=== PATIENT | female | born 1950 | race Caucasian/White ===

== ENCOUNTER 2017-10-28 12:39 | Outpatient (CLI) | payer OTHER | END 2017-10-28 12:40 | disposition home or self-care (01) | LOC: DTY/OP 12:39 | PROVIDERS: ATTEND Surgery | DX: E66.01 Morbid (severe) obesity due to excess calories (principal) | CPT/HCPCS: 97802 ==

== ENCOUNTER 2017-11-11 16:00 | Inpatient (IN) | payer OTHER ==
[2017-11-11 16:55] VITALS: BMI 27.4
[2017-11-16] MEDS ORDERED: Heparin 5,000 UNITS/ML VIAL ONE (06:20)
[2017-11-16] MEDS ORDERED: CEFAZOLIN/Water 2 GM/20 ML SYRINGE ONE (06:20)
[2017-11-16] MEDS ORDERED: Bupivacaine/Epinephrine 0.25% 30 ML VIAL ONE (06:26)
[2017-11-16] MEDS ORDERED: Midazolam HCl 2 mg/2 ml Vial ONE (06:38)
[2017-11-16] MEDS ORDERED: Fentanyl 250 MCG/5 ML VIAL ONE (06:38)
[2017-11-16] MEDS ORDERED: Dextrose 5% in Water 1,000 ML IV PRN (08:59)
[2017-11-16] MEDS ORDERED: Dextrose 50% Abboject 50 ML SYRINGE SLOW IVP PRN (08:59)
[2017-11-16] MEDS ORDERED: hydrALAZINE 20 MG/ML VIAL SLOW IVP PRN (08:59)
[2017-11-16] MEDS ORDERED: Promethazine HCl 25 MG/ML VIAL IM PRN ×3 (08:59→09:13)
[2017-11-16] MEDS ORDERED: Ondansetron HCl/PF 4 MG/2 ML Vial IVP PRN ×3 (08:59→09:13)
[2017-11-16] MEDS ORDERED: diphenhydrAMINE 50 MG/ML VIAL IVP PRN ×2 (08:59→09:13)
[2017-11-16] MEDS: Acetaminophen 1,000 MG in Premix Bag 1 BAG IVPB SCH ×3 (09:00→20:47)
[2017-11-16] MEDS ORDERED: Promethazine HCl 25 MG/ML VIAL SLOW IVP PRN (09:08)
[2017-11-16] MEDS ORDERED: HYDROmorphone 2 MG/ML VIAL SLOW IVP PRN (09:08)
[2017-11-16] MEDS ORDERED: Ketorolac Tromethamine 30 MG/ML VIAL IVP PRN (09:13)
[2017-11-16] MEDS ORDERED: fentaNYL Citrate/PF 2,000 MCG in Sodium Chloride 0.9% 60 ML IV PRN (09:13)
[2017-11-16] MEDS ORDERED: Zolpidem Tartrate 5 MG TAB PO PRN (09:13)
[2017-11-16] MEDS ORDERED: Naloxone HCl 0.4 mg/ml Vial IV PRN (09:13)
[2017-11-16] MEDS ORDERED: diphenhydrAMINE 50 MG/ML VIAL IM PRN (09:13)
[2017-11-16] MEDS ORDERED: diphenhydrAMINE 25 MG CAP PO PRN (09:13)
[2017-11-16] MEDS ORDERED: Communication Order-Pharmacy FS SCH (09:15)
[2017-11-16] MEDS ORDERED: Fentanyl 100 MCG/2 ML VIAL ONE (09:21)
[2017-11-16] MEDS ORDERED: Promethazine HCl 25 MG/ML VIAL ONE (09:23)
[2017-11-16] MEDS ORDERED: Ketorolac Tromethamine 30 MG/ML VIAL IVP SCH (12:00)
--- NOTE | 2017-11-16 13:07 | OP ---
DATE OF PROCEDURE: 11/16/2017 PREOPERATIVE DIAGNOSES: Lap band intolerance and obesity. SURGEON: Jose Landin M.D. PROCEDURE: Laparoscopic removal of band port and sleeve gastrectomy. INDICATIONS: A 67-year-old female who is having severe reflux due to pouch dilatation despite an emp ty band, is gaining weight. Desires removal of band, conversion to sleeve. FINDINGS: She had minimal adhesions. A 38-[place] bougie used. PROCEDURE IN DETAIL: After informed consent was obtained, the patient was taken to the operating stuart m and given general endotracheal anesthesia. She was placed in the supine position. The abdomen was prepped and draped in usual fashion. Local anesthesia infiltrated subcutaneously and deep. A 12 mm incision was performed approximately 8 inches below the xiphoid slightly to the left. Veress needle inserted. Drop test performed. Pneumoperitoneum was created to a volume of 2 liters of carbon diox cale. Utilizing a bladeless 12 mm trocar and 0 degree laparoscope, direct visual entry in the abdomin al cavity was performed. Pneumoperitoneum was created to a pressure of 15 [address] patient [address] d in steep reverse Trendelenburg position. Nathansen liver retractor inserted. Left lobe of liver r etracted superiorly. Pylorus identified, a 12 mm port placed on the right beneath it and two 12s christi donaldo left subcostal, one of which was where the port was. The lap band tubing was found and traced up to the pin, it was divided sharply. Then it was followed back down to the buckle. The buckle was d issected out. The buckle was opened. The capsule was incised posteriorly and the lap band removed f rom around the stomach and then removed from the abdomen through the left lateral site. Then the ome ntum was taken off the greater curvature 5 cm from the pylorus utilizing the LigaSure. Short gastric s divided with LigaSure, left crura defined with the LigaSure. The 38-[place] bougie was inserted and directed into the antrum. The linear 60 mm green load stapler used to divide the antrum to the boug ie, gold load along the bougie, and a series of blues through the angle of His. Intraoperative endos copy was performed. The video endoscope inserted under direct vision and advanced into the sleeve. The staple line inspected. There is no bleeding. Staple line then tested by inflating the new stoma ch with pressurized air under water. There was no air leak. Stomach decompressed. Scope removed. The lap band port was then removed. Then the remnant stomach was removed through that same incision, sent to pathology for further analysis. Hemostasis assured. The fascia closed with 0 Vicryl suture and the GraNee needle. Trocars and retractors removed. The skin closed with interrupted 4-0 Rapide . Steri-Strips applied. Sterile bandages applied. The patient tolerated the procedure well and was transferred to recovery in good condition. Sponge and needle count verified correct x2.
[2017-11-16] MEDS: D5 1/2 NS w/20 mEq KCL 1,000 ML IV SCH ×3 (13:15→20:57)
[2017-11-16] MEDS: CEFAZOLIN/Water 2 GM/20 ML SYRINGE SLOW IVP SCH ×2 (15:14→22:57)
[2017-11-16] MEDS: Pantoprazole 40 MG VIAL IVP SCH (16:51)
[2017-11-16] MEDS: Enoxaparin Sodium 40 MG/0.4 ML SYRINGE SC SCH (16:51)
[2017-11-17] MEDS: Acetaminophen 1,000 MG in Premix Bag 1 BAG IVPB SCH (03:22)
[2017-11-17 05:03] LABS: #Lymphocytes 0.9 thou/uL (1.20-3.40); #Monocytes 0.7 thou/uL (0.11-0.59); #Neutrophils 5.6 thou/uL (1.40-6.50); %Basophils 0.2 % (0.0-1.0); %Eosinophils 0.2 % (0.0-10.0); %Lymphocytes 12.3 % (21.0-51.0); %Monocytes 9.5 % (0.0-10.0); %Neutrophils 77.8 % (42.0-75.0); Hemoglobin 11.7 g/dL (12.0-16.0); Mean Corpuscular HGB CONC 34.8 g/dL (32.0-36.0); Mean Corpuscular Hemoglobin 34.5 pg (27.0-31.0); Mean Corpuscular Volume 99.4 fL (78.0-98.0); Mean Platelet Volume 6.7 fL (7.4-10.4); Platelet Count 136 thou/uL (130-400); RBC Distribution Width 11.3 % (11.5-14.5); Red Blood Cell (RBC) Count 3.39 mill/uL (4.20-5.40); White Blood Cell (WBC) Count 7.3 thou/uL (4.8-10.8)
[2017-11-17] MEDS: D5 1/2 NS w/20 mEq KCL 1,000 ML IV SCH (05:05)
[2017-11-17 05:32] LABS: Anion Gap 7 mmol/L (10-20); BUN (Urea Nitrogen) 5 mg/dL (9.8-20.1); Calc. Creatinine Clearance 98 mL/min (70-130); Calcium 8.2 mg/dL (7.8-10.44); Carbon Dioxide 27 mmol/L (23-31); Chloride 105 mmol/L (98-107); Estimated GFR-MDRD Greater than 90; Glucose 148 mg/dL (80-115); Sodium 135 mmol/L (136-145)
[2017-11-17] MEDS ORDERED: GASTROGRAFIN 30 ML BOT ONE (08:25)
[2017-11-17] MEDS: Pantoprazole 40 MG VIAL IVP SCH (09:30)
[2017-11-17] MEDS: Enoxaparin Sodium 40 MG/0.4 ML SYRINGE SC SCH (09:41)
[2017-11-17] MEDS ORDERED: traMADol HCl 50 MG TAB PO PRN ×4 (09:42→12:23)
--- NOTE | 2017-11-17 10:00 | RAD ---
UPPER GI SINGLE CONTRAST No AIR: Date: 11/17/17 HISTORY: Postop gastric bypass and vertical sleeve. COMPARISON: None. FINDINGS: Patient was administered oral contrast. There is passage of contrast through the stomach. No evidence of leak. IMPRESSION: No evidence of leak. POS: THANG
[2017-11-17 11:33] VITALS: BP 152/86; TEMP 98.4
[2017-11-17] MEDS ORDERED: traMADol HCl 50 MG TAB PO SCH ×2 (12:30→12:45)
--- NOTE | 2017-11-17 13:13 | DIS ---
DISCHARGE DIAGNOSES: Obesity, band intolerance. PROCEDURES DURING ADMISSION: Laparoscopic sleeve gastrectomy, intraoperative esophagogastroscopy, po stoperative Gastrografin swallow. HOSPITAL COURSE: The patient was admitted, taken to the operating room where she underwent a sleeve gastrectomy and removal of her band. She had intraoperative scope and then postoperative swallow. S he is doing well. She is tolerating liquids. She is discharged home on tramadol and Zofran. She wi ll follow up with me in 2 weeks.
== END 2017-11-17 13:10 | disposition home or self-care (01) | DRG 621 ==
LOC: SURG A 11-16 06:03 → SJJU 11-16 09:48
PROVIDERS: ADMIT Surgery; ATTEND Surgery
PROC: 0DP64CZ Removal of Extraluminal Device from Stomach, Percutaneous Endoscopic Approach (ICD-10-PCS; principal; 2017-11-16)
PROC: 0DB64ZZ Excision of Stomach, Percutaneous Endoscopic Approach (ICD-10-PCS; 2017-11-16)
DX: E66.9 Obesity, unspecified (principal); T85.858A Stenosis due to other internal prosthetic devices, implants and grafts, initial encounter; Z68.28 Body mass index [BMI] 28.0-28.9, adult
CPT/HCPCS: 36415; 74241; 80048; 85025; 88307; 88312; 94760; C9113; J0131; J1644; J1650; J2250; J2550; J3010; J7050